=== PATIENT | male | born 1990 | race Caucasian/White ===

== ENCOUNTER 2023-01-17 05:19 | Emergency (ER) | payer OTHER, SELFPAY ==
[2023-01-17 05:21] VITALS: BP 164/107; PULSE 83; RESP 16; TEMP 36.6; O2SAT 100
--- NOTE | 2023-01-17 05:51 | ED.GENADULT ---
HPI - General Adult General Chief complaint: Dental/Oral Stated complaint: R upper jaw pain Time Seen by Provider: 01/17/23 05:31 History of Present Illness HPI narrative: Patient is a 32-year-old gentleman who presents the emergency department with chief complaint of dental pain. Patient reports that he was seen several days ago by dentist and started on amoxicillin and Tylenol with codeine patient states that he has been having worsening pain tonight his tooth is just throbbing the patient states he is unable to get comfortable in any position reports that he plans on calling the dentist first thing in the morning but could not make it through the night. Related Data Allergies Allergy/AdvReac Type Severity Reaction Status Date / Time No Known Allergies Allergy Unverified 01/17/23 06:02 Review of Systems Review of Systems: A 10 system review of systems was completed on the patient and is negative except for what is stated in the HPI. Nursing and ancillary documentation was reviewed. Exam Narrative: GENERAL: Well-appearing, well-nourished, and in no acute distress. HEAD: Normocephalic, atraumatic. EYES: PERRLA and EOMI. ENT: Nares clear, no rhinorrhea or epistaxis. Mucous membranes moist. There is tenderness to palpation in the right posterior space between the last 2 molars NECK: Supple. CHEST: Clear to auscultation. No respiratory distress. HEART: Regular rate and rhythm. No murmur heard. Normal peripheral pulses. ABDOMEN: Soft, nontender, nondistended, normal active bowel sounds. EXTREMITIES: Normal range of motion. No edema. SKIN: Warm, dry, no rash. NEURO: No focal deficits. Alert and oriented x3. PSYCH: Normal mood and affect. Course Vital Signs Vital signs: Vital Signs Temperature 36.6 C 01/17/23 05:21 Pulse Rate 83 01/17/23 05:21 Respiratory Rate 16 01/17/23 05:21 Blood Pressure 164/107 H 01/17/23 05:21 Pulse Oximetry 100 01/17/23 05:21 Oxygen Delivery Room Air 01/17/23 05:21 Temperature 36.6 C 01/17/23 05:21 Pulse Rate 83 01/17/23 05:21 Respiratory Rate 16 01/17/23 05:21 Blood Pressure 164/107 H 01/17/23 05:21 Pulse Oximetry 100 01/17/23 05:21 Oxygen Delivery Room Air 01/17/23 05:21 Procedures Other Procedure Procedure 1: Other Procedure: Dental block performed by me Using 2% lidocaine the space between the last 2 molars on the right upper teeth was infiltrated locally with with 2 mL of lidocaine. This was under verbal consent the patient tolerated the procedure well and had improvement in his pain. Medical Decision Making Vital Signs Vital Signs: Vital Signs Temperature 36.6 C 01/17/23 05:21 Pulse Rate 83 01/17/23 05:21 Respiratory Rate 16 01/17/23 05:21 Blood Pressure 164/107 H 01/17/23 05:21 Pulse Oximetry 100 01/17/23 05:21 Oxygen Delivery Room Air 01/17/23 05:21 Temperature 36.6 C 01/17/23 05:21 Pulse Rate 83 01/17/23 05:21 Respiratory Rate 16 01/17/23 05:21 Blood Pressure 164/107 H 01/17/23 05:21 Pulse Oximetry 100 01/17/23 05:21 Oxygen Delivery Room Air 01/17/23 05:21 Discharge Plan Discharge Clinical Impression: Toothache, Dental abscess Patient Disposition: Home, Self-Care Condition: Stable Instructions: Antibiotic Form, Dental Abscess (ED) Prescriptions: New hydrocodone-acetaminophen 5-325 mg tablet 1 tablet PO Q6H PRN (Reason: pain) 3 Days Qty: 12 0RF Follow-up/Referrals: David Joya MD [Primary Care Provider] - PHYSICIAN,CLEANER AND TRIMMER [Non-Staff] - Stand Alone Forms: Work/School Release IP Time of Disposition: 06:41
[2023-01-17] MEDS: HYDROcodone/acetaminophen (*CRX) 5-325 MG TABLET 1 TAB PO (06:02)
[2023-01-17] MEDS: KETOROLAC 30 MG/ML VIAL (*BKC) IM (06:03)
== END 2023-01-17 06:55 | disposition home or self-care (01) ==
PROVIDERS: Emergency Provider Emergency Medicine; PCP Family Medicine
DX: K04.7 Periapical abscess without sinus (principal); K08.89 Other specified disorders of teeth and supporting structures
CPT/HCPCS: 64999; 96372; 99283; A9270; J1885

== ENCOUNTER 2023-09-18 11:42 | Emergency (ER) | payer OTHER, SELFPAY ==
[2023-09-18] VITALS (11 sets, daily range): BP systolic 125–174; BP diastolic 75–92; PULSE 72–81; RESP 18; TEMP 36.5–36.7; O2SAT 97–100
--- NOTE | ~2023-09-18 | CT_ITS ---
EXAMINATION: CT abdomen pelvis wo con DATE: 09/18/2023 12:18 INDICATION: Hematuria and flank pain TECHNIQUE: Computed tomography (CT) of the abdomen and pelvis was performed without intravenous contr ast. The dose-length product (DLP) was 516.06 mGy-cm. Automated exposure control and iterative recons truction technique were employed. COMPARISON: None FINDINGS: There is a 4 mm nodule of the right lower lobe, likely old granulomatous disease. The heart size is normal. The liver, spleen, pancreas, gallbladder, and adrenal glands are normal. The right k idney is unremarkable. There is a 4 mm stone in the proximal left ureter causing mild hydronephrosis. No pathologically enlarged abdominal or pelvic lymph nodes are identified. No free intraperitoneal g as or evidence of bowel obstruction. The appendix is normal. Internal stabilization hardware is prese nt in the partially imaged proximal left femur. IMPRESSION: 1. 4 mm stone of the proximal left ureter causing mild hydronephrosis. Reviewed, dictated and finalized at location F. RAM ASSOCIATE
--- NOTE | ~2023-09-18 | US_ITS ---
EXAMINATION: US scrotum doppler DATE: 09/18/2023 13:16 INDICATION: Testicular pain TECHNIQUE: Testicular sonogram utilizing grayscale and Doppler COMPARISON: None. FINDINGS: The right testis measures 5 x 2.2 x 3.1 cm. The left testis measures 5 x 2.6 x 3 cm. There is normal vascular flow to both testes. The right epididymis is normal with normal vascular flow. The left epididymis is normal with normal vascular flow. There is a small left hydrocele. IMPRESSION: 1. Small left hydrocele. Reviewed, dictated and finalized at location F. OR STORAGE ENGINEER IMPRESSION: 1. Small left hydrocele.
--- NOTE | 2023-09-18 11:48 | ED.MALEGU ---
HPI - Male Genitourinary General Chief complaint: Urogenital-Male Stated complaint: stomach/back pain, hematuria Time Seen by Provider: 09/18/23 11:48 Source: patient Mode of arrival: ambulatory Limitations: no limitations History of Present Illness HPI Narrative: patient is a very pleasant 33 yo male who denies any past medical history who presents to the ED today ambulatory with a steady gait for evaluation of suprapubic/lower abdominal pain, bilateral lower back pain, testicular pain/discomfort, hematuria, dark urine. denies any fever, chills, vomiting, diarrhea, constipation, concerns of STDS, penile discharge, pain with urination.denies swelling to the testicle that he can tell or any mass/lump. states it has been going on a few weeks. states that both of his brothers had testicular cancer that started with low back pain. denies any recent back injury or fall. denies numbness/tingling to BLE. denies hx of kidney stones. denies CP or SOB. Related Data Allergies Allergy/AdvReac Type Severity Reaction Status Date / Time No Known Allergies Allergy Unverified 01/17/23 06:02 Review of Systems Review of Systems: CONSTITUTIONAL: Denies fever, chills, or sweats. EYES: Denies visual changes, redness, or discharge. ENT: Denies rhinorrhea, congestion, sore throat, or otalgia. CARDIOVASCULAR: Denies chest pain, palpitations, or edema. RESPIRATORY: Denies cough or dyspnea. GASTROINTESTINAL: +lower suprapubic pain and mild nausea. denies vomiting or diarrhea. GENITOURINARY: +hematuria, testicular pain. denies flank pain. denies testicular swelling. SKIN: Denies rash or itching. MUSCULOSKELETAL: Denies back pain, joint pain, or myalgia. NEUROLOGIC: Denies headache, numbness, or weakness. PSYCHIATRIC: Denies anxiety or depression. All systems reviewed & are unremarkable except as noted in HPI and below Exam Narrative: GENERAL: Well-appearing, well-nourished, and in no acute distress. HEAD: Normocephalic, atraumatic. EYES: PERRLA and EOMI. ENT: Nares clear, no rhinorrhea or epistaxis. Mucous membranes moist. NECK: Supple. CHEST: Clear to auscultation. No respiratory distress. HEART: Regular rate and rhythm. No murmur heard. Normal peripheral pulses. ABDOMEN: Soft, TTP to suprapubic region/lower abdomen. nondistended, normal active bowel sounds. no rebound/guarding noted. : software engineering project manager present- no testicular swelling/erythema. cremasteric reflex present bilaterally EXTREMITIES: Normal range of motion. No edema. SKIN: Warm, dry, no rash. NEURO: No focal deficits. Alert and oriented x3. CN II-XII grossly intact PSYCH: Normal mood and affect. Course Reevaluation(s) Reevaluation #1: resting, updated on the US results and CT results and plan of care. Date: 09/18/23 Time: 13:44 Vital Signs Vital signs: Vital Signs Temperature 97.7 F 09/18/23 11:43 Pulse Rate 81 09/18/23 11:43 Respiratory Rate 18 09/18/23 11:43 Blood Pressure 174/92 H 09/18/23 11:43 Pulse Oximetry 97 09/18/23 11:43 Oxygen Delivery Room Air 09/18/23 11:43 Temperature 98.1 F 09/18/23 13:48 Pulse Rate 72 09/18/23 13:48 Respiratory Rate 18 09/18/23 13:48 Blood Pressure 125/91 H 09/18/23 13:48 Pulse Oximetry 100 09/18/23 13:52 Oxygen Delivery Room Air 09/18/23 11:43 MDM - Male Genitourinary MDM Narrative Medical decision making narrative: patient presents for bilateral low back pain, hematuria. There is strong family history of testicular cancer. He has no history of stones. Will obtain labs, urine, CT renal as well as with concerns of a testicular pain a ultrasound to rule out any testicular torsion. Patient's labs showed normal CBC, CMP. There is no signs of acute kidney injury. Urine has hematuria with 1+ leukocytes. No significant white blood cells. CT scan shows 4 mm ureter proximal stone with very mild hydronephrosis. Testicular ultrasound shows no torsion. There was a very small left hydrocele. Saira
[2023-09-18 12:02] LABS: Basophils Percent Auto 0.6 % (0.2-1.2); Eosinophils Absolute Auto 0.2 K/mm3 (0-0.3); Eosinophils Percent Auto 2.9 % (0-4.4); Hematocrit 43.5 % (42.0-52.0); Hemoglobin 14.7 g/dL (14.0-18.0); Immature Granulocyte Absolute 0.01 K/mm3 (0.00-0.031); Immature Granulocyte Percent A 0.1 % (0-0.5); Lymphocytes Absolute Auto 1.92 K/mm3 (0.9-3.2); Lymphocytes Percent Auto 27.7 % (18.3-44.2); Mean Corpuscular HGB Conc 33.8 g/dl (32-36); Mean Corpuscular Hemoglobin 29.8 pg (26-34); Mean Corpuscular Volume 88.2 fl (80-100); Mean Platelet Volume 9.5 fl (7.4-10.4); Monocytes Absolute Auto 0.6 K/mm3 (0.1-0.6); Monocytes Percent Auto 8.9 % (2.6-8.5); Neutrophils Absolute Auto 4.1 K/mm3 (1.3-6.7); Neutrophils Percent Auto 59.8 % (45.5-73.1); Platelet Count Result 297 k/mm3 (150-375); Red Blood Count 4.93 M/mm3 (4.6-6.20); Red Cell Distribution Width 12.1 % (11.5-14.5); White Blood Count 6.9 K/mm3 (4.5-10.0)
[2023-09-18] MEDS: KETOROLAC 30 MG/ML VIAL (*BKC) IV PUSH (12:03)
[2023-09-18] MEDS: ONDANSETRON INJ 4 MG/2 ML VIAL IV PUSH (12:04)
[2023-09-18] MEDS: SODIUM CHLORIDE 0.9% IV 1,000 ML 999 ML IV CONT (12:04)
[2023-09-18 12:14] LABS: Alanine Aminotransferase 25 U/L (6-50); Albumin Level 4.7 g/dL (3.5-5.1); Alkaline Phosphatase 54 U/L (38-126); Anion Gap 11 mmol/L (8-16); Aspartate Amino Transferase 32 U/L (17-59); Bilirubin,Total 0.6 mg/dL (0.2-1.3); Blood Urea Nitrogen 19 mg/dL (9-20); Calcium 9.5 mg/dL (8.4-10.2); Carbon Dioxide 27 mmol/L (22-30); Chloride 102 mmol/L (98-107); Estimated CRCL calculation 110 ml/min; Estimated Glomerular Filt Rate > 60; Glucose 107 mg/dL (65-110); Lipase 131 U/L (23-300); Potassium 4.5 mmol/L (3.4-5.0); Sodium 140 mmol/L (137-145)
[2023-09-18 12:24] LABS: Amorphous Sediment Urine Present; Bacteria Urine None Seen /hpf; Non Pathogenic Casts 0-2; RBC Urine >100 /hpf (0-2); Squamous Epithelial Cell Urine None seen /hpf (Few); WBC Urine 0-5 /hpf
[2023-09-18 12:27] LABS: Bilirubin Urine Negative (Negative); Blood Urine 3+ (Negative); Glucose Urine UA Negative (Negative); Ketones Urine Negative (Negative); Leukocyte Esterase Ur 1+ LEU/UL (Negative); Nitrate Urine Negative (Negative); Protein Urine Trace mg/dL (Negative); Specific Grav Ur 1.021 (1.001-1.035); Urobilinogen Urine 0.2 mg/dL (<2.0); pH Urine 7.5 (5.0-9.0)
[2023-09-18 12:28] LABS: Appearance Urine Cloudy (Clear); Color Urine Light Red (Yellow)
[2023-09-18 12:29] LABS: Add Urine Microscopic? YES
[2023-09-18] MEDS: TAMSULOSIN HCL 0.4 MG CAPSULE PO (13:47)
== END 2023-09-18 14:05 | disposition home or self-care (01) ==
PROVIDERS: Emergency Provider Nurse Practitioner; PCP Family Medicine
DX: N13.2 Hydronephrosis with renal and ureteral calculous obstruction (principal); N43.3 Hydrocele, unspecified; Z80.43 Family history of malignant neoplasm of testis
CPT/HCPCS: 36415; 74176; 76870; 80053; 81001; 83690; 85025; 93976; 96374; 96375; 99284; A9270; J1885; J2405; J7030

== ENCOUNTER 2023-09-25 14:34 | Emergency (ER) | payer OTHER, SELFPAY ==
[2023-09-25 14:41] VITALS: BP 178/76; PULSE 72; RESP 16; TEMP 36.6; O2SAT 100
--- NOTE | 2023-09-25 16:40 | PC.NURSE ---
CALLED PT FOR VITAL SIGNS. NO ANSWER.
--- NOTE | 2023-09-25 16:55 | PC.NURSE ---
2ND CALL FOR VITAL SIGNS. NO ANSWER.
--- NOTE | 2023-09-25 17:05 | PC.NURSE ---
Pt was called several time to come back for vitals signs to be done and wasn t present. Notified Triage Nurse
== END 2023-09-25 17:13 | disposition left against medical advice (07) ==
PROVIDERS: PCP Family Medicine
DX: R10.9 Unspecified abdominal pain (principal)
CPT/HCPCS: 99199

== ENCOUNTER 2024-02-12 23:50 | Emergency (ER) | payer OTHER, MEDICAID, SELFPAY ==
[2024-02-13 00:07] VITALS: BP 171/96; PULSE 107; RESP 15; TEMP 37.5; O2SAT 99
[2024-02-13 03:28] LABS: Influenza A QL RT-PCR Negative (Negative); Influenza B QL RT-PCR Negative (Negative); RSV RNA, RT-PCR Negative (Negative); SARS-CoV-2 RNA PCR Negative (Negative)
== END 2024-02-13 01:42 | disposition left against medical advice (07) ==
PROVIDERS: Emergency Provider Physician Assistant; PCP Family Medicine
DX: R05.9 Cough, unspecified (principal); Z20.822 Contact with and (suspected) exposure to COVID-19
CPT/HCPCS: 87637; 99199

== ENCOUNTER 2024-03-28 14:02 | Emergency (ER) | payer OTHER, MEDICAID, SELFPAY ==
--- NOTE | ~2024-03-28 | CT_ITS ---
EXAMINATION: CT abdomen pelvis wo con DATE: 03/28/2024 14:43 INDICATION: Left flank pain. TECHNIQUE: Computed tomography (CT) of the abdomen and pelvis was performed without intravenous contr ast. Automated exposure control and iterative reconstruction technique were employed. The dose-length product was 565.88 mGy-cm. COMPARISON: CT abdomen and pelvis 09/18/2023 FINDINGS: The visualized portions of the lung bases demonstrate a chronic 5 mm nodule in right lower lobe, likely benign. No pleural effusion. The heart size is normal. No pericardial effusion. There is diffuse hepatic steatosis. The gallbladder, spleen, pancreas, adrenal glands, and kidneys are normal . There is no urolithiasis. There are no dilated loops of bowel. The appendix is normal. There are no pathologically enlarged lymph nodes. There is no free intraperitoneal fluid. There is internal fixat ion of left femur. There is mild lumbar spondylosis. There is mild chronic anterior wedging of T11-L1 vertebral bodies. IMPRESSION: 1. No etiology for the patient's symptoms. Reviewed, dictated and finalized at location E.
[2024-03-28 14:04] VITALS: BP 132/83; PULSE 120; RESP 20; TEMP 37.2; O2SAT 100
--- NOTE | 2024-03-28 14:34 | ED.ABDPAIN ---
HPI - Abdominal Pain General Chief Complaint: Abdominal Pain Stated Complaint: flank pain Time Seen by Provider: 03/28/24 14:04 History of Present Illness HPI narrative: 34-year-old male presents to emergency department for multiple medical complaints. He was seen in August of 2023 for flank pain was diagnosed with a kidney stone. He reports today because he is concerned he has another kidney stone. States he has been having pain in his left flank and left abdomen for few months, however last night he will, but 3:00 a.m. with associated nausea which prompted him to come to the ED today. States the pain is colicky in nature and is intermittent, he denies any aggravating or alleviating factors. States now it feels like it is in his right flank as well. He denies dysuria or hematuria, fever, vomiting. He is also reporting a focal rash to his left meléndez that is been there for approximately 2 years. States it sometimes gets itchy, there is no pain. Her reports a similar rash to the superior aspect of his tib-fib, otherwise denies any areas of rash. He has not followed up with a urologist or PCP since his visit in August of 2023. Related Data Allergies Allergy/AdvReac Type Severity Reaction Status Date / Time No Known Allergies Allergy Unverified 01/17/23 06:02 Review of Systems Review of Systems: CONSTITUTIONAL: Denies fever, chills, or sweats. EYES: Denies visual changes, redness, or discharge. ENT: Denies rhinorrhea, congestion, sore throat, or otalgia. CARDIOVASCULAR: Denies chest pain, palpitations, or edema. RESPIRATORY: Denies cough or dyspnea. GASTROINTESTINAL: See HPI GENITOURINARY: Denies dysuria or hematuria. SKIN: See HPI MUSCULOSKELETAL: Denies back pain, joint pain, or myalgia. NEUROLOGIC: Denies headache, numbness, or weakness. PSYCHIATRIC: Denies anxiety or depression. Exam Narrative: GENERAL: Well-appearing, well-nourished, and in no acute distress. HEAD: Normocephalic, atraumatic. EYES: PERRLA and EOMI. ENT: Nares clear, no rhinorrhea or epistaxis. Mucous membranes moist. Bilateral tonsillar exudates and hypertrophy, no unilateral hypertrophy. Uvula midline. No without aphasia or dysphasia. Patient tolerating secretions. No trismus. No hot potato voice. NECK: Supple. CHEST: Clear to auscultation. No respiratory distress. HEART: Regular rate and rhythm. No murmur heard. Normal peripheral pulses. ABDOMEN: Soft, nontender, nondistended, normal active bowel sounds. No rebound, guarding or rigidity. No significant left or right-sided CVA tenderness. EXTREMITIES: Normal range of motion. No edema. SKIN: Approximately 2.5 cm irregular patch of brawny hyperpigmentation to the anterior aspect of the inferior tibia with very scant amount of scaling. There is also a 1 cm rash that appears similar to the medial aspect of the superior tibia. No erythema, fluctuance, induration, drainage, crepitus, edema, vesicles. Negative Nikolsky sign NEURO: No focal deficits. Alert and oriented x3 Course Vital Signs Vital signs: Vital Signs Temperature 98.9 F 03/28/24 14:04 Pulse Rate 120 H 03/28/24 14:04 Respiratory Rate 20 03/28/24 14:04 Blood Pressure 132/83 03/28/24 14:04 Pulse Oximetry 100 03/28/24 14:04 Oxygen Delivery Room Air 03/28/24 14:04 Temperature 98.9 F 03/28/24 14:04 Pulse Rate 86 03/28/24 15:25 Respiratory Rate 19 03/28/24 15:25 Blood Pressure 133/77 03/28/24 15:25 Pulse Oximetry 98 03/28/24 15:25 Oxygen Delivery Room Air 03/28/24 14:04 MDM - Abdominal Pain MDM Narrative Medical decision making narrative: 34-year-old male history of ureterolithiasis presents to emergency department with intermittent left-sided flank pain for few months, now on the right and worsening over the past day. Also reporting a rash to the left tib-fib for 2 years. Triage vital significant for tachycardia 120, otherwise unremarkable. He is afebrile and nontoxic appearin
[2024-03-28] MEDS: SODIUM CHLORIDE 0.9% IV 1,000 ML 999 ML IV CONT (14:51)
[2024-03-28] MEDS: ONDANSETRON INJ 4 MG/2 ML VIAL IV PUSH (14:52)
[2024-03-28] MEDS: MORPHINE SULFATE (*CRX) 4 MG/ML INJ IV PUSH (14:52)
[2024-03-28 15:08] LABS: Basophils Absolute Auto 0.1 K/mm3 (0.0-0.1); Basophils Percent Auto 0.3 % (0.2-1.2); Eosinophils Absolute Auto 0.2 K/mm3 (0-0.3); Eosinophils Percent Auto 0.9 % (0-4.4); Hematocrit 44.5 % (42.0-52.0); Hemoglobin 15.3 g/dL (14.0-18.0); Immature Granulocyte Percent A 0.5 % (0-0.5); Lymphocytes Absolute Auto 1.25 K/mm3 (0.9-3.2); Lymphocytes Percent Auto 6.2 % (18.3-44.2); Mean Corpuscular HGB Conc 34.4 g/dl (32-36); Mean Corpuscular Hemoglobin 29.5 pg (26-34); Mean Corpuscular Volume 85.9 fl (80-100); Mean Platelet Volume 9.8 fl (7.4-10.4); Monocytes Absolute Auto 1.5 K/mm3 (0.1-0.6); Monocytes Percent Auto 7.6 % (2.6-8.5); Neutrophils Percent Auto 84.5 % (45.5-73.1); Platelet Count Result 235 k/mm3 (150-375); Red Blood Count 5.18 M/mm3 (4.6-6.20); White Blood Count 20.1 K/mm3 (4.5-10.0)
[2024-03-28 15:10] LABS: Appearance Urine Clear (Clear); Bilirubin Urine Negative (Negative); Blood Urine Negative (Negative); Color Urine Yellow (Yellow); Glucose Urine UA Negative (Negative); Ketones Urine Negative (Negative); Leukocyte Esterase Ur Negative LEU/UL (Negative); Nitrate Urine Negative (Negative); Protein Urine Negative (Negative); Specific Grav Ur 1.023 (1.001-1.035); Urobilinogen Urine 0.2 mg/dL (<2.0); pH Urine 5.5 (5.0-9.0)
[2024-03-28 15:11] LABS: Add Urine Microscopic? NO
[2024-03-28 15:22] LABS: Alanine Aminotransferase 31 U/L (6-50); Albumin Level 4.5 g/dL (3.5-5.1); Alkaline Phosphatase 71 U/L (38-126); Anion Gap 8 mmol/L (4-12); Aspartate Amino Transferase 23 U/L (17-59); Bilirubin,Total 0.6 mg/dL (0.2-1.3); Blood Urea Nitrogen 12 mg/dL (9-20); Calcium 9.2 mg/dL (8.4-10.2); Carbon Dioxide 22 mmol/L (22-30); Chloride 107 mmol/L (98-107); Estimated CRCL calculation 88 ml/min; Estimated Glomerular Filt Rate > 60; Glucose 117 mg/dL (65-110); Lipase 123 U/L (23-300); Potassium 3.7 mmol/L (3.4-5.0); Sodium 137 mmol/L (137-145)
[2024-03-28 15:25] VITALS: BP 133/77; PULSE 86; RESP 19; O2SAT 98
[2024-03-28 16:17] VITALS: BP 125/77; PULSE 94; RESP 17; O2SAT 100
== END 2024-03-28 16:18 | disposition left against medical advice (07) ==
PROVIDERS: Emergency Provider Physician Assistant; PCP Family Medicine
DX: J02.9 Acute pharyngitis, unspecified (principal); R10.9 Unspecified abdominal pain; L30.9 Dermatitis, unspecified
CPT/HCPCS: 36415; 74176; 80053; 81003; 83690; 85025; 96361; 96374; 96375; 99284; J2270; J2405; J7030

== ENCOUNTER 2024-12-08 12:28 | Emergency (ER) | payer MEDICAID, SELFPAY ==
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
--- OUTSIDE RECORDS SUMMARY | 2024-12-08 12:31 | XMS_ITS | Encounter Summary ---
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 Call disconnected while searching for an appointment. Left voicemail for patient to call back for assistance. Does message need to be routed? No ICAL SUPPORT ASSOCIATE * Telephone Encounter - Lilian Avalos - 12/08/2024 8:42 AM CST Left a voicemail with patient requesting his appointment to get rescheduled due to Lisa being out sick. Gave our call back number. ICAL SUPPORT ASSOCIATE documented in this encounter Plan of Treatment Not on file documented as of this encounter Visit Diagnoses Not on filedocumented in this encounter Care Teams Hoe Runner Relationship Specialty Start Date End Date Unknown, Notinfile PCP - General 09/08/23 documented as of this encounter
[2024-12-08 13:01] VITALS: BP 164/114; PULSE 107; RESP 16; TEMP 36.8; O2SAT 98
--- OUTSIDE RECORDS SUMMARY | 2024-12-08 14:51 | XMS_ITS | Referral Summary ---
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
--- OUTSIDE RECORDS SUMMARY | 2024-12-08 14:51 | XMS_ITS | Clinical Summary ---
Author Organization [facility] [place] [address] Address [address] 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
--- OUTSIDE RECORDS SUMMARY | 2024-12-08 14:51 | XMS_ITS | Encounter Summary ---
Author Organization [facility] Address [address] [place] [address] Care Team Providers Care Mold Worker Name Role Phone Unknown, Notinffred Primary Care Provider Unavail able Encounter Details Date Type Department Care Team (Late st Contact Info) Description 12/08/[address] 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 Call disconnected while searching for an appointment. Left voicemail for patient to call back for assistance. Does message need to be routed? No ERBOARD SETTER * Telephone Encounter - Lilian Avalos - 12/08/2024 8:42 AM CST Left a voicemail with patient requesting his appointment to get rescheduled due to Lisa being out sick. Gave our call back number. ERBOARD SETTER documented in this encounter Plan of Treatment Not on file documented as of this encounter Visit Diagnoses Not on filedocumented in this encounter Care Teams Mold Worker Relationship Specialty Start Date End Date Unknown, Notinfile PCP - General 09/08/23 documented as of this encounter
[2024-12-08 14:55] LABS: Hematocrit 44.8 % (42.0-52.0); Mean Corpuscular HGB Conc 33.5 g/dl (32-36); Mean Corpuscular Hemoglobin 29.8 pg (26-34); Mean Corpuscular Volume 89.1 fl (80-100); Mean Platelet Volume 9.9 fl (7.4-10.4); Platelet Count Result 208 k/mm3 (150-375); Red Blood Count 5.03 M/mm3 (4.6-6.20); Red Cell Distribution Width 12.9 % (11.5-14.5); White Blood Count 6.6 K/mm3 (4.5-10.0)
[2024-12-08 14:57] LABS: Add Urine Microscopic? NO; Appearance Urine Clear (Clear); Bilirubin Urine Negative (Negative); Blood Urine Negative (Negative); Color Urine Yellow (Yellow); Glucose Urine UA Negative (Negative); Ketones Urine Negative (Negative); Leukocyte Esterase Ur Negative LEU/UL (Negative); Nitrate Urine Negative (Negative); Protein Urine Negative (Negative); Specific Grav Ur 1.022 (1.001-1.035); Urobilinogen Urine 0.2 mg/dL (<2.0)
[2024-12-08 15:04] LABS: Anion Gap 13 mmol/L (4-12); Blood Urea Nitrogen 15 mg/dL (9-20); Carbon Dioxide 26 mmol/L (22-30); Chloride 102 mmol/L (98-107); Estimated CRCL calculation 119 ml/min; Estimated Glomerular Filt Rate > 60; Glucose 95 mg/dL (65-110); Potassium 4.2 mmol/L (3.4-5.0); Sodium 141 mmol/L (137-145)
[2024-12-08 15:28] LABS: Band Neutrophils Percent 4 % (0-6); Lymphocytes Absolute Manual 1.91 K/mm3 (1.1-4.5); Monocytes Absolute Manual 0.85 K/mm3 (0.1-0.90); Monocytes Percent Manual 13 % (3-9); Neutrophils Absolute Manual 3.82 K/mm3 (1.3-6.7); Neutrophils Percent Manual 54 % (46-73); Nucleated Red Blood Cells 4 %; Platelet Estimate Adequate (Adequate); Schistocytes None Seen; Total Cells Counted 100
[2024-12-08 15:33] LABS: Influenza A QL RT-PCR Negative (Negative); Influenza B QL RT-PCR Negative (Negative); RSV RNA, RT-PCR Negative (Negative); SARS-CoV-2 RNA PCR Negative (Negative)
--- NOTE | 2024-12-08 16:09 | ED.GENADULT ---
HPI - General Adult General Chief complaint: Unspecified Stated complaint: mult complaints, PCP cancelled Time Seen by Provider: 12/08/24 14:30 History of Present Illness HPI narrative: Patient wants a PCP appt but has had trouble getting one for months, finally got one for today but they canceled on him so he came here. He just wants to make sure his kidneys are fine and he has no kidney infection or stone. He has had intermittent low back pain for last week. Related Data Allergies Allergy/AdvReac Type Severity Reaction Status Date / Time No Known Allergies Allergy Verified 12/08/24 13:05 Review of Systems Review of Systems: All systems reviewed & are unremarkable except as noted in HPI and below Exam Narrative: EXAMINATION OF ORGAN SYSTEMS/BODY AREAS: Constitutional: Vital signs per nursing GENERAL:[No acute distress, non-toxic appearing.] HEAD: Normal with no signs of head trauma. EYES: EOMI, conjunctiva normal ENT: Hearing grossly intact LUNGS: Nonlabored breathing. HEART: [Regular rate and rhythm] ABD: [Soft], [nontender to palpation], no flank tenderness EXT: Normal range of motion SKIN: [No rashes or lesions.] NEURO: [Alert and oriented x 3. No gross focal sensory or strength deficits.] Ambulating with normal steady gait PSYCH: Normal affect Course Vital Signs Vital signs: Vital Signs Temperature 98.3 F 12/08/24 13:01 Pulse Rate 107 H 12/08/24 13:01 Respiratory Rate 16 12/08/24 13:01 Blood Pressure 164/114 H 12/08/24 13:01 Pulse Oximetry 98 12/08/24 13:01 Oxygen Delivery Room Air 12/08/24 13:01 Temperature 98.3 F 12/08/24 13:01 Pulse Rate 107 H 12/08/24 13:01 Respiratory Rate 16 12/08/24 13:01 Blood Pressure 164/114 H 12/08/24 13:01 Pulse Oximetry 98 12/08/24 13:01 Oxygen Delivery Room Air 12/08/24 13:01 Medical Decision Making [facility] Narrative Medical decision making narrative: Patient presents here with some low back discomfort, but mostly he just wants to get basic labs checked because his PCP appointment canceled on and he wants a new primary care doctor. He is well-appearing here, no distress, abdomen and back nontender, I did therefore obtain basic labs which were normal and the urinalysis which is also normal. Patient reassured, I have given him information for follow-up to our PCP clinic here, and he is given return precautions. Vital Signs Vital Signs: Vital Signs Temperature 98.3 F 12/08/24 13:01 Pulse Rate 107 H 12/08/24 13:01 Respiratory Rate 16 12/08/24 13:01 Blood Pressure 164/114 H 12/08/24 13:01 Pulse Oximetry 98 12/08/24 13:01 Oxygen Delivery Room Air 12/08/24 13:01 Temperature 98.3 F 12/08/24 13:01 Pulse Rate 107 H 12/08/24 13:01 Respiratory Rate 16 12/08/24 13:01 Blood Pressure 164/114 H 12/08/24 13:01 Pulse Oximetry 98 12/08/24 13:01 Oxygen Delivery Room Air 12/08/24 13:01 Lab Data 12/08/24 14:48 12/08/24 14:48 Labs: Lab Results 12/08/24 Range/Units 14:48 WBC 6.6 (4.5-10.0) K/mm3 RBC 5.03 (4.6-6.20) M/mm3 Hgb 15.0 (14.0-18.0) g/dL Hct 44.8 (42.0-52.0) % MCV 89.1 (80-100) fl MCH 29.8 (26-34) pg MCHC 33.5 (32-36) g/dl RDW 12.9 (11.5-14.5) % Plt Count 208 (150-375) k/mm3 MPV 9.9 (7.4-10.4) fl Immature Gran % (Auto) Not Reportable Neut % (Auto) Not Reportable Lymph % (Auto) Not Reportable [place] % (Auto) Not Reportable Eos % (Auto) Not Reportable Baso % (Auto) Not Reportable Lymph # (Auto) Not Reportable [place] # (Auto) Not Reportable Eos # (Auto) Not Reportable Baso # (Auto) Not Reportable Abs Immat Gran (auto) Not Reportable Absolute Neuts (auto) Not Reportable Absolute Nucleated RBC Not Reportable Total Counted 100 Neutrophils % (Manual) 54 (46-73) % Band Neutrophils % 4 (0-6) % Lymphocytes % (Manual) 29.0 (18-44) % Monocytes % (Manual) 13 H (3-9) % Nucleated RBC % Not Reportable Abs Neuts (Manual) 3.82 (1.3-6.7) K/mm3 Abs Lymphs (Manual) 1.91 (1.1-4.5) K/mm3 Abs Monocytes (Manual) 0.85 (0.1-0.90) K/mm3 Nucleated RBCs 4 % Platelet Estimate Adequate (Adequate) Schistocytes None seen Sodium 141 (137-145) mmol/L Potassium 4.2 (3.4-5.0) mmol/L Chloride 102 (98-107) mmol/L Carbon Dioxide 26 (22-30) mmol/L Anion Gap 13 H (4-12) mmol/L BUN 15 (9-20) mg/dL Creatinine 0.87 (0.7-1.3) mg/dL Estim Creat Clear Calc 119 ml/min Estimated GFR > 60 (59 - ) Glucose 95 (65-110) mg/dL Calcium 9.0 (8.4-10.2) mg/dL Urine Color Yellow (Yellow) Urine Appearance Clear (Clear) Urine pH 6.0 (5.0-9.0) Ur Specific [place] 1.022 (1.001-1.035) Urine Protein Negative (Negative) mg/dL Urine Glucose (UA) Negative (Negative) mg/dL Urine Ketones Negative (Negative) mg/dL Ur Blood (Man) Negative (Negative) Urine Nitrate Negative (Negative) Urine Bilirubin Negative (Negative) Urine Urobilinogen 0.2 (<2.0) mg/dL Leukocyte Esterase Rfl Negative (Negative) BIJAN/UL Influenza A (RT-PCR) Negative (Negative) Influenza B (RT-PCR) Negative (Negative) RSV (RT-PCR) Negative (Negative) SARS-CoV-2 RNA (RT-PCR) Negative (Negative) Discharge Plan Discharge Clinical Impression: Low back pain Patient Disposition: Home, Self-Care Condition: Stable Instructions: Back Pain (ED) Additional Instructions: Please call the number below today to make an appointment to follow up with primary care doctor. Your blood work and urine labs look fine today, your blood pressure is slightly high, this will need to be rechecked by your primary care doctor to see if you should be started on new medications. If you have any concerning symptoms, please come back to the emergency room. Patient Language: Amharic Prescriptions: No Action hydrocodone-acetaminophen 5-325 mg tablet 1 tablet PO .q6 PRN (Reason: pain) Qty: 6 0RF ondansetron 4 mg tablet,disintegrating 4 mg PO Q6H PRN (Reason: nausea and vomiting) Qty: 20 0RF cephalexin 500 mg capsule 500 mg PO Q12H Qty: 10 0RF tamsulosin 0.4 mg capsule 0.4 mg PO DAILY Qty: 20 0RF hydrocodone-acetaminophen 5-325 mg tablet 1 tablet PO Q6H PRN (Reason: pain) Qty: 12 0RF ketorolac 10 mg tablet 10 mg PO Q6H PRN (Reason: pain) 5 Days Qty: 20 0RF amoxicillin-pot clavulanate 875-125 mg tablet 1 tablet PO Q12H Qty: 14 0RF triamcinolone acetonide 0.025 % cream 1 applic topical DAILY Qty: 15 0RF cyclobenzaprine 10 mg tablet 10 mg PO TID PRN (Reason: muscle spasm) Qty: 14 0RF ibuprofen 800 mg tablet 800 mg PO TID PRN (Reason: pain) Qty: 20 0RF lidocaine 5 % adhesive patch,medicated 1 patch topical DAILY Qty: 15 0RF Rx Instructions: leave on most painful area for up to 12 hrs. do not use more than 1 patch in a 24-hour period. Follow-up/Referrals: Yanira Perez DO [Physician] - 2 Days UNKNOWN,DOCTOR [Primary Care Provider] -
[2024-12-08 16:10] VITALS: BP 138/95; PULSE 91; RESP 16; TEMP 36.7; O2SAT 100
== END 2024-12-08 16:10 | disposition home or self-care (01) ==
PROVIDERS: Emergency Provider Emergency Medicine
DX: M54.50 Low back pain, unspecified (principal); Z20.822 Contact with and (suspected) exposure to COVID-19
CPT/HCPCS: 36415; 80048; 81003; 85025; 87637; 99283

== ENCOUNTER 2025-08-26 11:27 | Emergency (ER) | payer OTHER, MEDICAID, SELFPAY ==
--- OUTSIDE RECORDS SUMMARY | 2025-08-26 11:39 | XMS_ITS | Clinical Summary ---
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 the LDL cholesterol target. Literature References: 1. Expert Panel on Integrated Guidelines for Cardiovascular Health and Risk Reduction in Children and Adolescents. Pediatrics 2011;128:S213 2. NCEP Expert Panel. Circulation 2004;110:227 Current Interpretive Data was last revised on 2018. Testing performed by: [facility], [address] [place] [address]., [address] Chol/HDL ratio 6 CHARBEL Comment:Testing performed by : [address] [address] Blood 08/23/2025 3:39 PM CDT 08/23/2025 8:24 PM CDT us Lisa Roberto SUPER[employer] BLOOD ORDERABLES Final Re sult [address] Department [place] [address] * (ABNORMAL) Comprehensive metabolic panel (08/23/2025 3:39 PM CDT) Sodium 139 135 - 145 mmol/L Comment:Testing performed by : [facility], [address] [place] [address]., [address] Potassium, pl 4.2 3.3 - 4.9 mmol/L [facility] Comment:Testing performed by : [facility], [address] [place] [address]., [address] Chloride 100 97 - 110 mmol/L [facility] Comment:Testing performed by : [address] [address] CO2 25 22 - 32 mmol/L [facility] Comment:Testing performed by : [address] [address] Anion gap 14 2 - 15 mmol/L [facility] Comment:Testing performed by : [address] [address] BUN 9 6 - 25 mg/dL [facility] Comment:Testing performed by : [address] [address] Creatinine 1.06 0.80 - 1.30 mg/dL [facility] Comment:Testing performed by : [address] [address] Glucose 80 70 - 199 mg/dL [facility] Comment: Interpretive Data Fasting glucose >/= 126 mg/dl is diagnostic for diabetes. Fasting is defined as no caloric intake for at least 8 hours. Fasting glucose between 100 mg/dl to 125 mg/dl is diagnostic of prediabetes. In a patient with classic symptoms of hyperglycemia or hyperglycemic crisis, a random glucose >/= 200 mg/dl is diagnostic for diabetes. In the absence of unequivocal hyperglycemia, results should be confirmed by repeat testing. The classification and Diagnosis of Diabetes Diabetes Care 2022; 46: S19-S40. Current interpretive data was last revised 2022. Testing performed by: [facility], [address] [place] [address]., [address] Calcium 9.7 8.5 - 10.3 mg/dL [facility] Comment:Testing performed by : [facility], [address] [place] [address]., [address] Bilirubin, total 0.2 0.1 - 1.2 mg/dL [facility] Comment:Testing performed by : [facility], [address] [place] [address]., [address] Protein, pl 7.9 6.5 - 8.5 g/dL [facility] Comment:Testing performed by : [facility], [address] [place] [address]., [address] Albumin 4.5 3.5 - 5.0 g/dL [facility] Comment:Testing performed by : [facility], [address] [place] [address]., [address] Alk phos 78 40 - 130 Units/L [facility] Comment:Testing performed by : [facility], [address] [place] [address], [address] ALT 57(H) 7 - 55 Units/L [facility] Comment:Testing performed by : [facility], [address] [place] [address], [address] AST 39 10 - 50 Units/L [facility] Comment:Testing performed by : [address] [address] Blood 08/23/2025 3:39 PM CDT 08/23/2025 8:24 PM CDT us Lisa Roberto [employer] BLOOD ORDERABLES Final Re sult [address] Department [place] [address] from Last 3 Months Insurance IDPA Care Teams Plant Guard Relationship Specialty Start Date End Date Lisa Roberto NP [address] [facility] [address] [place] [address] PCP - General Family Medicine 08/23/25
--- OUTSIDE RECORDS SUMMARY | 2025-08-26 11:39 | XMS_ITS | Encounter Summary ---
Author Organization [facility] Healthcare Address [address] [place] [address] Care Team Providers Care Winemaker Name Role Phone Lisa Roberto NP Primary Care Provider [phone] Encounter Details Date Type Department Care Team (Late st Contact Info) Description 08/26/2025 Results Follow-Up [facility] Primary Care at [address] [place] [address] Lisa Roberto, HUMIDIFIER MAINTENANCE WORKER [address] [place] [address] [address] [place] [address] Hepatitis B Surface Antigen Blood, Hepatitis B core antibody, total Blood, Hepatitis B surface antibody (immune status) Blood, Additional followed-up results: 12 Social History Tobacco Use Types Packs/Day Years Used Date Smoking Tobacco: Every Day Cigarettes Alcohol Use Standard Drinks/Week Comments Never 0 [...] on file Legal Sex Male 8:48 AM [employer] Gender Identity Not on file Sexual Orientation Not on file documented as of this encounter Plan of Treatment Not on file documented as of this encounter Visit Diagnoses Not on filedocumented in this encounter Care Teams Winemaker Relationship Specialty Start Date End Date Lisa Roberto NP [address] [facility] [address] [place] [address] PCP - General Family Medicine 08/23/25 documented as of this encounter
[2025-08-26 11:43] VITALS: BP 143/85; PULSE 104; RESP 16; TEMP 36.6; O2SAT 99
--- NOTE | 2025-08-26 11:47 | ECG_ITS ---
Test Date: 2025-08-26 11:51:48 Measurements Intervals [place] Rate: 102 P: 50 RI: 157 QRS: 45 QRSD: 87 T: 19 QT: 317 QTc: 414 Interpretive Statements SINUS TACHYCARDIA BASELINE WANDER- II, III, AVR, AVF BORDERLINE ECG No previous ECG available for comparison Electronically Signed On 08-26-2025 12:45:27 CDT by Isidro Montoya D.O.
--- NOTE | 2025-08-26 14:13 | PC.NURSE ---
patient called to go back to evaluation room without answer at this time.
--- NOTE | 2025-08-26 14:37 | PC.NURSE ---
Pt. call x2 in [facility] to be brought back to a room with no reply.
--- OUTSIDE RECORDS SUMMARY | 2025-08-26 14:43 | XMS_ITS | Clinical Summary ---
Author Organization [facility] [place] [address] Address [address] 5th [place] [address] Care Team Providers Care Certified Medication Aide Name Role Phone Lisa Roberto NP Primary Care Provider [phone] Allergies Active Allergy Reactions Criticality Noted Date [...] Department Care Team Description 08/26/2025 Results Follow-Up [facility] Primary Care at [address] [address] Lisa Roberto NP Hepatitis B Surface Antigen Blood, Hepatitis B core antibody, total Blood, Hepatitis B surface antibody (immune status) Blood, Additional followed-up results: 12 08/23/2025 4:00 PM CDT Lab [facility] - Outpatient Center at [address] [address] Need for hepatitis B screening test; Screening for diabetes mellitus; Screening, anemia, deficiency, iron; Screening for thyroid disorder; Screening for lipid disorders; Encounter for hepatitis C screening test for low risk patient; Screening examination for STI 08/23/2025 3:30 PM CDT Office Visit [facility] Primary Care at [address] [address] Lisa Roberto NP Encounter for medical examination [...] on file 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 trachomatis Not Detected [facility] Comment:Testing performed by : [facility], [address] [facility] [place]., [address] N. gonorrhoeae Not Detected CHARBEL GENAO Comment: Interpretive Data This assay detects Chlamydia trachomatis and Neisseria gonorrhoeae by nucleic acid amplification testing (NAAT). This assay has been cleared by the [place] Food and Drug administration. The performance characteristics of this test have been verified by the [facility] Molecular Infectious Disease laboratory. The performance characteristics of this test have not been evaluated in individuals less than 14 years of age. Current Interpretive Data was last revised on 2023. Testing performed by: [facility], [address] [place]., [address] Urine (None) 08/23/2025 3:39 PM CDT 08/24/2025 1:11 PM CDT Lisa Roberto NP LAB MICROBIOLOGY - GENERAL OR DERABLES Final Result Performing Organization Address [facility] de Phone Number [facility] [address] [address] [facility] [place] [address] [facility] * Trichomonas vaginalis PCR Urine (08/23/2025 3:39 PM CDT) Trichomonas DNA Not Detected [facility] Comment: Interpretive Data This assay detects Trichomonas vaginalis by nucleic acid amplification testing (NAAT). This assay has been cleared by the [place] Food and Drug administration. The performance characteristics of this test have been verified by the [facility] Molecular Infectious Disease laboratory. The performance of this test has not been evaluated in individuals less than 18 years of age. Current Interpretive Data was last revised on 2023. Testing performed by: [facility], [address] [place] [address]., [address] Urine 08/23/2025 3:39 PM CDT 08/24/2025 1:11 PM CDT Lisa Roberto NP LAB MICROBIOLOGY - GENERAL OR DERABLES Final Result Performing Organization Address [facility] de Phone Number CHARBEL [address] [address] [facility] [place] [address] [facility] * eGFR (08/23/2025 3:39 PM CDT) eGFR [...] was last reviewed 2021. Testing performed by: [address] [address] Blood 08/23/2025 3:39 PM CDT 08/23/2025 8:34 PM CDT us Lisa Roberto NP LAB BLOOD ORDERABLES Final Re sult [facility] [address] [place] [address] * (ABNORMAL) Differential, auto (08/23/2025 3:39 PM CDT) Pathologist [facility] Neutrophil abs 3.59 1.50 - 6.50 K/cumm Comment:Testing performed by : [address] [address] Imm gran abs 0.02 0.00 - 0.10 K/cumm CHARBEL Comment:Testing performed by : [address] [address] Lymphocyte abs 2.10 0.80 - 3.30 K/cumm CERNER CH Comment:Testing performed by : [facility], [address] [place] [address]., [address] Monocyte abs 1.01(H) 0.20 - 0.80 K/cumm CERNER CH Comment:Testing performed by : [facility], [address] [place] [address]., [address] Eosinophil abs 0.24 0.00 - 0.50 K/cumm CERNER CH Comment:Testing performed by : [facility], [address] [place] [address]., [address] Basophil abs 0.05 0.00 - 0.10 K/cumm CERNER CH Comment:Testing performed by : [facility], [address] [place] [address]., [address] Neutrophil pct 51.2 % CERNER CH Comment: Interpretive Data Percent cell count reference ranges are not reported, since discordance with absolute values may lead to misinterpretation of CBC data. Current Interpretive Data was last revised on 2018. Testing performed by: [address] [address] Imm gran pct 0.3 % CERNER CH Comment: Interpretive Data Percent cell count reference ranges are not reported, since discordance with absolute values may lead to misinterpretation of CBC data. Current Interpretive Data was last revised on 2018. Testing performed by: [address] [address] Lymphocyte pct 30.0 % CERNER CH Comment: Interpretive Data Percent cell count reference ranges are not reported, since discordance with absolute values may lead to misinterpretation of CBC data. Current Interpretive Data was last revised on 2018. Testing performed by: [address] [address] Monocyte pct 14.4 % CERNER CH Comment: Interpretive Data Percent cell count reference ranges are not reported, since discordance with absolute values may lead to misinterpretation of CBC data. Current Interpretive Data was last revised on 2018. Testing performed by: [address] [address] Eosinophil pct 3.4 % CERNER CH Comment: Interpretive Data Percent cell count reference ranges are not reported, since discordance with absolute values may lead to misinterpretation of CBC data. Current Interpretive Data was last revised on 2018. Testing performed by: [facility], [address] [place] [address]., [address] Basophil pct 0.7 % CHARBEL GENAO Comment: Interpretive Data Percent cell count reference ranges are not reported, since discordance with absolute values may lead to misinterpretation of CBC data. Current Interpretive Data was last revised on 2018. Testing performed by: [facility], [address] [place] [address]., [address] Blood 08/23/2025 3:39 PM CDT 08/23/2025 8:24 PM CDT Lisa Roberto NP LAB BLOOD ORDERABLES Final Re sult Performing Organization Address [facility] Co de Phone Number CHARBEL [address] [address] [place] [address] * HIV 1/2 Antibody plus p24 Antigen Blood (08/23/2025 3:39 PM CDT) Pathologist [facility] HIV 1/2 ab + p24 ag Nonreactive Nonreactive Comment: Nonreactive for HIV-1 antigen and HIV-1/HIV-2 antibodies. No laboratory evidence of HIV infection. If acute HIV infection is suspected, consider testing for HIV-1 RNA. Testing performed by: [facility], [address] [place] [address]., [address] Blood 08/23/2025 3:39 PM CDT 08/23/2025 8:24 PM CDT Lisa Roberto NP LAB MICROBIOLOGY - GENERAL OR DERABLES Final Result Performing Organization Address [facility]/ZIP Co de Phone Number [facility]OMON[facility]ISA [address] [address] [place] [address] * CBC with auto differential (08/23/2025 3:39 PM CDT) Pathologist [facility] WBC 7.01 3.80 - 9.90 K/cumm Comment:Testing performed by : [address] [address] Hgb 15.4 13.0 - 17.5 g/dL CERNER CH Comment:Testing performed by : [address], [address] Hct 45.8 38.9 - 50.3 % CERNER CH Comment:Testing performed by : [address], [address] Plt 310 150 - 400 K/cumm CERNER CH Comment:Testing performed by : [address], [address] MPV 10.8 9.1 - 12.3 fL CERNER CH Comment:Testing performed by : [address], [address] RBC 5.24 4.30 - 5.80 M/cumm CERNER CH Comment:Testing performed by : [address], [address] MCV 87.4 81.3 - 96.4 fL CERNER CH Comment:Testing performed by : [address], [address] MCH 29.4 27.1 - 33.3 pg CERNER CH Comment:Testing performed by : [address], [address] MCHC 33.6 32.3 - 35.7 g/dL CERNER CH Comment:Testing performed by : [address], [address] RDW CV 12.5 11.1 - 14.9 % CERNER CH Comment:Testing performed by : [address], [address] RDW SD 39.9 35.7 - 48.1 fL CERNER CH Comment:Testing performed by : [address], [address] NRBC abs 0.00 0.00 - 0.01 K/cumm CERNER CH Comment:Testing performed by : [address], [address] Blood 08/23/2025 3:39 PM CDT 08/23/2025 8:24 PM CDT Lisa Roberto PATTERN WEAVER LAB BLOOD ORDERABLES Final Re sult Performing Organization Address [facility] Co de Phone Number CHARBEL GENAO [address] [place] [address] * Hepatitis C antibody Blood [...] last revised on 2020. Testing performed by: [facility], [address] [place] [address]., [address] Blood 08/23/2025 3:39 PM CDT 08/23/2025 8:24 PM CDT Lisa Roberto NP LAB MICROBIOLOGY - GENERAL OR DERABLES Final Result Performing Organization Address [facility] Co de Phone Number CHARBEL GENAO [address] [address] [facility] [place] [address] * Hepatitis B core antibody, total Blood (08/23/2025 3:39 PM CDT) Hep B core IgG/IgM Nonreactive Nonreactive Comment:Testing performed by : [facility], [address] [place] [address]., [address] Blood 08/23/2025 3:39 PM CDT 08/24/2025 10:30 AM CDT Lisa Roberto NP LAB MICROBIOLOGY - GENERAL OR DERABLES Final Result Performing Organization Address City/[facility] Co de Phone Number CHARBEL GENAO [address] [address] [place] [place] [address] * RPR Blood (08/23/2025 3:39 PM CDT) [facility] RPR Nonreactive Nonreactive Comment:Testing performed by : [address] [address] Blood 08/23/2025 3:39 PM CDT 08/23/2025 8:24 PM CDT Lisa Roberto NP LAB MICROBIOLOGY - GENERAL OR DERABLES Final Result Performing Organization Address [facility] de Phone Number [facility] [address] [place] [address] * Hepatitis B surface antibody (immune status) Blood (08/23/2025 3:39 PM CDT) [facility] HBsAb (immune status) Nonreactive Comment: Interpretive Data [...] last revised on 20. Testing performed by: [address] [address] Blood 08/23/2025 3:39 PM CDT 08/23/2025 8:24 PM CDT Lisa Roberto NP LAB MICROBIOLOGY - GENERAL OR DERABLES Final Result Performing Organization Address [facility] de Phone Number [facility] [address] [place] [address] * Hepatitis B Surface Antigen Blood (08/23/2025 3:39 PM CDT) [facility] HepBsAg Nonreactive Nonreactive Comment:Testing performed by : [address] [address] Blood 08/23/2025 3:39 PM CDT 08/23/2025 8:24 PM CDT Lisa Roberto NP LAB MICROBIOLOGY - GENERAL OR DERABLES Final Result Performing Organization Address [facility] Co de Phone Number CHARBEL [address] [facility] [place] [address] * TSH (08/23/2025 3:39 PM CDT) Thyroid Stimulating Hormone 1.12 0.30 - 4.20 mcIUnit/mL Comment:Testing performed by : [facility], [address] [place] [address]., [address] Blood 08/23/2025 3:39 PM CDT 08/23/2025 8:24 PM CDT Lisa Roberto NP LAB BLOOD ORDERABLES Final Re sult Performing Organization Address [facility] de Phone Number CHARBEL [address] [facility] [place] [address] * Hemoglobin A1c (08/23/2025 3:39 PM CDT) Hgb A1C 5.4 4.0 - 5.6 % Comment:Testing performed by : [address] [address] Estimated Average Glucose 108 mg/dL CHARBEL CHADWICK Comment: The ADA recommends reporting an estimated Average Glucose (eAG) with all Hemoglobin A1c results using the equation derived from a study of 507 normal and diabetic adults. Minority populations were underrepresented and children were not included. (Diabetes Care 31:1056-7481, 2008). The eAG is not equivalent to a fasting glucose. Testing performed by: [address] [address] Blood 08/23/2025 3:39 PM CDT 08/23/2025 8:24 PM CDT Lisa Roberto NP LAB BLOOD ORDERABLES Final Re sult Performing Organization Address [facility] Co de Phone Number CHARBEL [address] Department of Laboratories [place] [id number] * (ABNORMAL) Lipid panel (08/23/2025 3:39 PM [...] last revised on 2018. Testing performed by: [address] [address] Triglycerides 223(H) <=149 mg/dL CHARBEL GENAO Comment: [...] last revised on 2018. Testing performed by: [facility], [address] [place] [address]., [address] HDL 34(L) >=40 mg/dL CHARBEL GENAO Comment: [...] last revised on 2018. Testing performed by: [facility], [address] [place] [address]., [address] LDL, calculated 142(H) <=129 mg/dL CHARBEL Comment: [...] last revised on 2024. Testing performed by: [address] [address] Non-HDL Cholesterol 183 mg/dL CHARBEL Comment: Interpretive [...] last revised on 2018. Testing performed by: [facility], [address] [place] [address]., [address] Chol/HDL ratio 6 CHARBEL Comment:Testing performed by : [address] [address] Blood 08/23/2025 3:39 PM CDT 08/23/2025 8:24 PM CDT us Lisa Roberto PATTERN WEAVER LAB BLOOD ORDERABLES Final Re sult [address] [place] [address] * (ABNORMAL) Comprehensive metabolic panel (08/23/2025 3:39 PM CDT) Sodium 139 135 - 145 mmol/L Comment:Testing performed by : [facility], [address] [place] [address]., [address] Potassium, pl 4.2 3.3 - 4.9 mmol/L [facility] Comment:Testing performed by : [facility], [address] [place] [address]., [address] Chloride 100 97 - 110 mmol/L [facility] Comment:Testing performed by : [address] [address] CO2 25 22 - 32 mmol/L [facility] Comment:Testing performed by : [address] [address] Anion gap 14 2 - 15 mmol/L [facility] Comment:Testing performed by : [address] [address] BUN 9 6 - 25 mg/dL [facility] Comment:Testing performed by : [address] [address] Creatinine 1.06 0.80 - 1.30 mg/dL [facility] Comment:Testing performed by : [address] [address] Glucose 80 70 - 199 mg/dL MARY [...] was last revised 2022. Testing performed by: [facility], [address] [place] [address]., [address] Calcium 9.7 8.5 - 10.3 mg/dL CERNER CH Comment:Testing performed by : [facility], [address] [place] [address]., [address] Bilirubin, total 0.2 0.1 - 1.2 mg/dL CERNER CH Comment:Testing performed by : [facility], [address] [place] [address]., [address] Protein, pl 7.9 6.5 - 8.5 g/dL CERNER CH Comment:Testing performed by : [facility], [address] [place] [address]., [address] Albumin 4.5 3.5 - 5.0 g/dL CERNER CH Comment:Testing performed by : [facility], [address] [place] [address]., [address] Alk phos 78 40 - 130 Units/L CERNER CH Comment:Testing performed by : [facility], [address] [place] [address], [address] ALT 57(H) 7 - 55 Units/L CERNER CH Comment:Testing performed by : [facility], [address] [place] [address], [address] AST 39 10 - 50 Units/L CERNER CH Comment:Testing performed by : [address] [address] Blood 08/23/2025 3:39 PM CDT 08/23/2025 8:24 PM CDT us Lisa Roberto PATTERN WEAVER LAB BLOOD ORDERABLES Final Re sult [address] [place] [address] from Last 3 Months Insurance IDPA Care Teams Certified Medication Aide Relationship Specialty Start Date End Date Lisa Roberto NP [address] [facility] [address] [place] [address] PCP - General Family Medicine 08/23/25
--- OUTSIDE RECORDS SUMMARY | 2025-08-26 14:43 | XMS_ITS | Encounter Summary ---
Author Organization [facility] Healthcare Address [address] [place] [address] Care Team Providers Care Product Scientist Name Role Phone Lisa Roberto NP Primary Care Provider [phone] Encounter Details Date Type Department Care Team (Late st Contact Info) Description 08/26/2025 Results Follow-Up 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
== END 2025-08-26 15:18 | disposition left against medical advice (07) ==
PROVIDERS: Emergency Provider Student in an Organized Health Care Education/Training Program
DX: R42 Dizziness and giddiness (principal)
CPT/HCPCS: 93005; 99199